=== PATIENT | male | born 1995 | race Caucasian/White ===

== ENCOUNTER 2017-07-10 09:44 | Emergency (ER) | payer OTHER ==
[~2017-07-10] VITALS: Ht 177.8 cm; Wt 61.2 kg
== END 2017-07-10 15:08 | disposition home or self-care (01) ==
LOC: ER 09:44
DX: R10.31 Right lower quadrant pain (principal); R10.84 Generalized abdominal pain

== ENCOUNTER 2018-06-27 18:57 | Emergency (ER) | payer OTHER ==
[~2018-06-27] VITALS: Ht 180.3 cm; Wt 61.2 kg
== END 2018-06-27 21:43 | disposition home or self-care (01) ==
LOC: ER 18:57
DX: F06.4 Anxiety disorder due to known physiological condition (principal)

== ENCOUNTER 2019-07-30 19:47 | Emergency (ER) | payer OTHER ==
[~2019-07-30] VITALS: Ht 182.9 cm; Wt 70.3 kg
== END 2019-07-30 22:48 | disposition home or self-care (01) ==
LOC: ER 19:47
DX: T69.8XXA Other specified effects of reduced temperature, initial encounter (principal); J45.990 Exercise induced bronchospasm

== ENCOUNTER 2019-08-02 15:19 | Emergency (ER) | payer OTHER ==
[~2019-08-02] VITALS: Ht 180.3 cm; Wt 59.0 kg
== END 2019-08-02 18:32 | disposition home or self-care (01) ==
LOC: ER 15:19
DX: I49.8 Other specified cardiac arrhythmias (principal); Z03.818 Encounter for observation for suspected exposure to other biological agents ruled out; R06.02 Shortness of breath

== ENCOUNTER 2019-10-19 08:42 | Outpatient (CLI) | payer OTHER | END 2019-10-19 09:24 | disposition home or self-care (01) | LOC: RAD 08:42 | PROVIDERS: ATTEND Internal Medicine Cardiovascular Disease | DX: R97.20 Elevated prostate specific antigen [PSA] (principal); N41.8 Other inflammatory diseases of prostate; H54.8 Legal blindness, as defined in USA; G43.909 Migraine, unspecified, not intractable, without status migrainosus ==

== ENCOUNTER 2020-10-24 12:24 | Emergency (ER) | payer OTHER ==
[~2020-10-24] VITALS: Ht 180.3 cm; Wt 59.0 kg
== END 2020-10-24 16:14 | disposition home or self-care (01) ==
LOC: ER 12:24
DX: K61.0 Anal abscess (principal); Z03.818 Encounter for observation for suspected exposure to other biological agents ruled out